=== PATIENT | female | born 1965 | race Caucasian/White ===

== ENCOUNTER 2017-12-28 12:14 | Emergency (ER) | payer BC ==
[2017-12-28] MEDS ORDERED: SODIUM CHLORIDE 0.9% 1,000 ML IV ONE (14:20)
[2017-12-28] MEDS ORDERED: ONDANSETRON 4 MG/2 ML VIAL IVP STA (14:21)
[2017-12-28] MEDS ORDERED: LABETALOL 20 MG/4 ML SYRINGE IVP ONE (14:21)
--- NOTE | 2017-12-28 14:22 | ED Physician Documentation ---
History of Present Illness - Stated complaint Stated Complaint: HIGH BP/VOMITING - Chief complaint Chief Complaint: General - History obtained from History obtained from: Patient - History of Present Illness Timing: Other (This is a 52-year-old woman with history of migraine headaches, hypertension, and hypothyroidism. She woke up today with a posterior headache that got worse throughout the morning and developed nausea and threw up. She took her blood pressure several times and it was always high and that worried her because she felt like she threw up her lisinopril a couple of times. She is light sensitive with it. It is not the worst headache of her life, nor was it sudden in onset.) Review of Systems Constitutional: denies: Fever, Chills Ears: denies: Loss of hearing, Ear pain Nose: denies: Rhinorrhea / runny nose, Congestion Throat: denies: Sore throat PD PAST MEDICAL HISTORY - Past Medical History Past Medical History: Yes Cardiovascular: Hypertension Endocrine/Autoimmune: HyPOthyroidism - Present Medications Home Medications: Ambulatory Orders Medication Instructions Recorded Confirmed Levothyroxine Sodium [Tirosint] 12/28/17 Lisinopril/Hydrochlorothiazide 12/28/17 [Lisinopril-Hctz 10-12.5 mg Tab] - Allergies Allergies/Adverse Reactions: Allergies Allergy/AdvReac Type Severity Reaction Status Date / Time No Known Drug Allergies Allergy Verified 12/28/17 12:18 - Social History Does the pt smoke?: No Smoking Status: Never smoker PD ED PE NORMAL - Vitals Vital signs reviewed: Yes - General General: Alert and oriented X 3, No acute distress - HEENT HEENT: PERRL, EOMI - Neck Neck: Supple, no meningeal sign, No bony TTP - Neuro Neuro: Alert and oriented X 3, Normal speech Eye Opening: Spontaneous Motor: Obeys Commands Verbal: Oriented GCS Score: 15 - Psych Psych: Normal mood, Normal affect Results - Vitals Vitals: Vital Signs - 24 hr 12/28/17 12/28/17 12/28/17 12:16 12:45 14:05 Temperature 36.6 C Heart Rate 89 76 79 Respiratory 16 16 16 Rate Blood Pressure 153/117 H 147/106 H 149/109 H O2 Saturation 96 98 Oxygen O2 Source Room air PD MEDICAL DECISION MAKING - ED course ED course: The headache is gradual in onset and similar to prior headaches. As such I doubt subarachnoid hemorrhage. There are no infectious symptoms such as fever or stiff neck to make me suspect meningitis. No carbon monoxide exposure by history. She was administered labetalol and Zofran, on recheck she was feeling much better. Departure - Departure Disposition: 01 Home, Self Care Clinical Impression: Hypertension Qualifiers: Hypertension type: essential hypertension Qualified Code(s): I10 - Essential ( primary) hypertension Headache Qualifiers: Headache type: tension-type Headache chronicity pattern: acute headache Intractability: not intractable Qualified Code(s): G44.209 - Tension-type headache, unspecified, not intractable Condition: Good Record reviewed to determine appropriate education?: Yes Instructions: ED Cephalgia Unspecified Comments: Recheck with your doctor in 1 week, return if worse or if new symptoms develop.
[2017-12-28] MEDS ORDERED: LABETALOL 5 MG/1 ML 20 ML MDV IVP ONE (15:00)
[2017-12-28 15:21] LABS: CALCIUM 9.2 mg/dL (8.5-10.3); CREATININE 0.5 mg/dL (0.4-1.0)
[2017-12-28 15:35] VITALS: BP 126/95
== END 2017-12-28 15:35 | disposition home or self-care (01) ==
LOC: ED 12:14
DX: G44.209 Tension-type headache, unspecified, not intractable (principal); I10 Essential (primary) hypertension; E03.9 Hypothyroidism, unspecified
CPT/HCPCS: 36415; 80048; 96361; 96374; 96375; 99283; 99284

== ENCOUNTER 2021-04-03 09:40 | Outpatient (CLI) | payer BC | END 2021-04-03 23:59 | disposition home or self-care (01) | LOC: LAB.N 09:40 | PROVIDERS: ATTEND Family Medicine | DX: Z20.822 Contact with and (suspected) exposure to COVID-19 (principal) ==